=== PATIENT | female | born 1960 | race Native Hawaiian/Other Pacific Islander ===

== ENCOUNTER 2016-10-21 10:08 | Outpatient (CLI) | payer BC | END 2016-10-21 20:49 | disposition home or self-care (01) | LOC: RAD 10:08 | DX: R49.9 Unspecified voice and resonance disorder (principal) ==

== ENCOUNTER 2021-03-30 16:04 | Outpatient (CLI) | payer BC, OTHER | END 2021-03-30 23:59 | disposition home or self-care (01) | LOC: RAD 16:04 | PROVIDERS: ATTEND Orthopaedic Surgery | DX: M25.562 Pain in left knee (principal) ==

== ENCOUNTER 2021-11-02 14:33 | Outpatient (CLI) | payer OTHER, BC | END 2021-11-02 19:31 | disposition home or self-care (01) | LOC: RAD 14:33 | PROVIDERS: ATTEND Orthopaedic Surgery | DX: M25.552 Pain in left hip (principal); M25.562 Pain in left knee; M54.59 Other low back pain ==

== ENCOUNTER 2022-05-03 13:08 | Outpatient (CLI) | payer OTHER, BC | END 2022-05-03 19:07 | disposition home or self-care (01) | LOC: RAD 13:08 | PROVIDERS: ATTEND Orthopaedic Surgery | DX: M25.511 Pain in right shoulder (principal); M25.552 Pain in left hip ==